=== PATIENT | male | born 1990 | race Caucasian/White ===

== ENCOUNTER 2019-05-31 14:15 | Emergency (ER) | payer OTHER, BC ==
[2019-05-31 14:28] VITALS: BP 126/88
--- NOTE | 2019-05-31 16:09 | ED Physician Documentation ---
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, and a usually caged [employer] [employer] dog ran over to him and bit him in the calf, with laceration lateraly and bruising, abrasion posteriorly, with tender muscles posteriorly mostly.) Timing - onset: Today Timing - details: Abrupt onset, Still present Associated symptoms: No: Weakness, Numbness Review of Systems Neurologic: denies: Focal weakness, Numbness, Near syncope PD PAST MEDICAL HISTORY - Past Medical History Cardiovascular: None Respiratory: None Neuro: None Endocrine/Autoimmune: None - Present Medications Home Medications: Ambulatory Orders Medication Instructions Recorded Confirmed Amox/Clav 875/125 [Augmentin] 1 each PO Q12H #10 tablet 05/31/19 Mupirocin 1 applic TP TID #15 g 05/31/19 Naproxen 500 mg PO BID #20 tablet 05/31/19 - Allergies Allergies/Adverse Reactions: Allergies Allergy/AdvReac Type Severity Reaction Status Date / Time No Known Drug Allergies Allergy Verified 05/31/19 14:24 PD ED PE NORMAL - Vitals Vital signs reviewed: Yes - General General: Alert and oriented X 3, No acute distress (but has some limping gait walking. ), Well developed/nourished - Back Back: No spinal TTP - Derm Derm: Normal color, Warm and dry - Extremities Extremities: Other (right lower leg with 2.4 cm laceration lateral upper calf, without FB. Minimal bleeding still. Posterior upper calf with abrasions and muscle tenderness.) - Neuro Neuro: Alert and oriented X 3, No motor deficit, No sensory deficit, Normal speech Results - Vitals Vitals: Vital Signs - 24 hr 05/31/19 14:24 Temperature 37 C Heart Rate 99 Respiratory 17 Rate Blood Pressure 126/88 H O2 Saturation 98 Oxygen O2 Source Room air Procedures - Laceration (location) right lateral calf Length in cm: 2.4 Wound type: Linear, Clean Neurovascular status: Sensory intact, Motor intact, Vascular intact Tendon involvement: Tendon intact PD MEDICAL DECISION MAKING - ED course Complexity details: considered differential, d/w patient Departure - Departure Disposition: 01 Home, Self Care Clinical Impression: Dog bite of lower leg Qualifiers: Encounter type: initial encounter Laterality: right Qualified Code(s): S81.851A - Open bite, right lower leg, initial encounter Condition: Stable Record reviewed to determine appropriate education?: Yes Instructions: ED Bite Dog Prescriptions: Amox/Clav 875/125 [Augmentin] 1 each PO Q12H #10 tablet Mupirocin 1 applic TP TID #15 g Naproxen 500 mg PO BID #20 tablet Comments: It is okay to wash and shower. Clean off the wound twice a day with soap and water, or peroxide and water. Apply some antibiotic ointment to it to keep it moist. Also to watch for signs of infection such as purulence, redness or increasing pain. Return to your primary care or the ER at the specified time for suture removal. Suture removal 9 or 10 days. Anti-inflammatory naproxen twice daily for 7 to 10 days for pain and inflammation. Apply mupirocin antibiotic ointment to the wound after cleaning it twice daily. Augmentin oral antibiotic twice daily to reduce the chance of infection. Minimal walking and use of the calf muscle for a couple of days. Progressed to normal after that. Forms: Activity restrictions Discharge Date/Time: 05/31/19 17:05
[2019-05-31] MEDS ORDERED: IBUPROFEN 600 MG TABLET PO STA (16:19)
[2019-05-31] MEDS ORDERED: AMOX/CLAV 875 MG/125 MG TABLET PO STA (16:19)
[2019-05-31] MEDS ORDERED: LIDOCAINE MPF 1%-EPI 1:200000 10 ML VIAL SUBQ STA (16:19)
== END 2019-05-31 17:05 | disposition home or self-care (01) ==
LOC: ED 14:15
DX: S81.851A Open bite, right lower leg, initial encounter (principal); W54.0XXA Bitten by dog, initial encounter; Y93.01 Activity, walking, marching and hiking; Y92.007 Garden or yard of unspecified non-institutional (private) residence as the place of occurrence of the external cause; Y99.0 Civilian activity done for income or pay
CPT/HCPCS: 12001; 99283; A9270; J3490; 1040M

== ENCOUNTER 2019-07-21 17:27 | Emergency (ER) | payer BC ==
[2019-07-21 17:35] VITALS: BP 144/87
--- NOTE | 2019-07-21 17:57 | ED Physician Documentation ---
History of Present Illness - Stated complaint Stated Complaint: ARM AND NECK PAIN - Chief complaint Chief Complaint: Ext Problem - History obtained from History obtained from: Patient - History of Present Illness Timing: Other (For about a month and a half he is had waxing waning left-sided neck pain that is worse if he rotates to the right. It often radiates down into the left deltoid area hard to describe pain. There is no specific injury but started after a new workout.) Review of Systems Constitutional: denies: Fever, Chills Cardiac: denies: Chest pain / pressure, Palpitations Respiratory: denies: Dyspnea, Cough GI: denies: Abdominal Pain, Nausea, Vomiting PD PAST MEDICAL HISTORY - Past Medical History Cardiovascular: None Respiratory: None Neuro: None Endocrine/Autoimmune: None - Past Surgical History Past Surgical History: No - Present Medications Home Medications: Ambulatory Orders Medication Instructions Recorded Confirmed predniSONE [Deltasone] 20 mg PO [id number] #21 tab 07/21/19 - Allergies Allergies/Adverse Reactions: Allergies Allergy/AdvReac Type Severity Reaction Status Date / Time No Known Drug Allergies Allergy Verified 07/21/19 17:35 - Social History Does the pt smoke?: No Smoking Status: Never smoker Does the pt drink ETOH?: Yes Does the pt have substance abuse?: No - Immunizations Immunizations are current?: Yes - POLST Patient has POLST: No PD ED PE NORMAL - Vitals Vital signs reviewed: Yes - General General: Alert and oriented X 3, No acute distress - HEENT HEENT: PERRL, EOMI - Neck Neck: Supple, no meningeal sign, No bony TTP - Neuro Neuro: Alert and oriented X 3, No motor deficit, No sensory deficit, Normal speech, Other (Equal bilateral upper extremity reflexes, bicep, coracobrachialis's, tricep. 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 Sensation throughout the upper extremities is equal.) Results - Vitals Vitals: Vital Signs - 24 hr 07/21/19 17:31 Temperature 36.7 C Heart Rate 77 Respiratory 18 Rate Blood Pressure 144/87 H O2 Saturation 99 Oxygen O2 Source Room air PD MEDICAL DECISION MAKING - ED course ED course: His description sounds like cervical radiculopathy, no physical findings of same. We will trial a steroid pack pending follow-up with primary care. Departure - Departure Disposition: Home, Self Care Clinical Impression: Neck pain Condition: Good Record reviewed to determine appropriate education?: Yes Instructions: ED Neck Back Pain General Follow-Up: [facility] [Provider Group] [facility] [Provider Group] [facility] [Provider Group] Prescriptions: predniSONE [Deltasone] 20 mg PO [id number] #21 tab Comments: Your symptoms are most consistent with a cervical radiculopathy, that said your neurologic exam is normal. Recommend trialing the course of steroids but she need to follow-up with her primary care physician for further evaluation and treatment
== END 2019-07-21 18:20 | disposition home or self-care (01) ==
LOC: ED 17:27
DX: M54.2 Cervicalgia (principal)
CPT/HCPCS: 99282; 99283

== ENCOUNTER 2019-09-29 13:58 | Emergency (ER) | payer OTHER, BC ==
--- NOTE | 2019-09-29 15:38 | ED Physician Documentation ---
PD HPI HEAD INJURY - Stated complaint Stated Complaint: HEAD PX/INJ - Chief complaint Chief Complaint: Trauma Hd/Nk - History obtained from History obtained from: Patient - History of Present Illness Mechanism of head injury: Blow Where head injury occurred: Work Timing - onset: Yesterday Location of injury: Right Quality of pain: Pain Associated symptoms: No: LOC, AMS, Amnesia, Nausea / vomiting, Neck pain, Paresthesias, Seizures, Ear drainage, Nasal drainage Symptoms improve with: Rest Symptoms worsen with: Palpation Contributing factors: No: Anticoagulated Similar symptoms before: Has not had sx before Recently seen: Not recently seen - Additional information Additional information: 29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 He did not have loss of consciousness he does have a bruise to the area the area is tender and he has a mild headache. He denies any nausea associated with this denies any difficulty concentrating denies any dizziness or lightheadedness. He was asked by his work to come to the emergency department for evaluation. He denies any neck pain associated with his injury. Review of Systems Constitutional: denies: Fever Eyes: denies: Decreased vision Ears: denies: Loss of hearing, Ear pain Nose: denies: Rhinorrhea / runny nose, Congestion Throat: denies: Sore throat Cardiac: denies: Chest pain / pressure, Palpitations Respiratory: denies: Dyspnea, Cough GI: denies: Abdominal Pain, Nausea, Vomiting, Constipation, Diarrhea : denies: Dysuria, Frequency Neurologic: reports: Headache, Head injury. denies: Generalized weakness, Focal weakness, Numbness, Difficulty speaking, Seizure, Confused, Altered mental status, LOC PD PAST MEDICAL HISTORY - Past Medical History Cardiovascular: None Respiratory: None Neuro: None Endocrine/Autoimmune: None - Past Surgical History Past Surgical History: No - Present Medications Home Medications: Ambulatory Orders Medication Instructions Recorded Confirmed predniSONE [Deltasone] 20 mg PO [id number] #21 tab 07/21/19 - Allergies Allergies/Adverse Reactions: Allergies Allergy/AdvReac Type Severity Reaction Status Date / Time No Known Drug Allergies Allergy Verified 09/29/19 14:06 - Social History Does the pt smoke?: No Smoking Status: Never smoker Does the pt drink ETOH?: Yes Does the pt have substance abuse?: No - Immunizations Immunizations are current?: Yes - POLST Patient has POLST: No PD ED PE NORMAL - Vitals Vital signs reviewed: Yes (Hypertensive mild) - General General: Alert and oriented X 3, No acute distress, Well developed/nourished - HEENT HEENT: PERRL, EOMI, Pharynx benign, Other (There is a 2 cm round area of elevated tissue on the right parietal area of the scalp with a central abrasion consistent where the with the contusion to the head is reported. There is no crepitance or step-off to suggest a skull fracture. There is some tenderness associated with this. 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, No motor deficit, No sensory deficit, Normal speech Eye Opening: Spontaneous Motor: Obeys Commands Verbal: Oriented GCS Score: 15 - Psych Psych: Normal mood, Normal affect Results - Vitals Vitals: Vital Signs - 24 hr 09/29/19 14:06 Temperature 36.6 C Heart Rate 81 Respiratory 14 Rate Blood Pressure 152/93 H O2 Saturation 100 Oxygen O2 Source Room air PD MEDICAL DECISION MAKING - ED course Complexity details: considered differential, d/w patient ED course: 29-year-old male with a concussion yesterday at work has no significant sequelae related to this appears to be tolerating this well we will suspend him from work today and expect him to return to work tomorrow CT scan is not indicated. Departure - Departure Disposition: 01 Home, Self Care Clinical Impression: Concussion Qualifiers: Encounter type: initial encounter Loss of consciousness presence/duration: without LOC Qualified Code(s): S06.0X0A - Concussion without loss of consciousness, initial encounter Condition: Stable Instructions: ED Concussion Follow-Up: [facility] [Provider Group] Forms: Activity restrictions
[2019-09-29 15:53] VITALS: BP 155/94
== END 2019-09-29 15:52 | disposition home or self-care (01) ==
LOC: ED 13:58
DX: S06.0X0A Concussion without loss of consciousness, initial encounter (principal); S00.03XA Contusion of scalp, initial encounter; S00.01XA Abrasion of scalp, initial encounter; W22.09XA Striking against other stationary object, initial encounter; Y93.89 Activity, other specified; Y92.009 Unspecified place in unspecified non-institutional (private) residence as the place of occurrence of the external cause; Y99.0 Civilian activity done for income or pay
CPT/HCPCS: 1040M; 99282; 99284

== ENCOUNTER 2019-12-01 14:42 | Outpatient (CLI) | payer BC | END 2019-12-01 14:43 | disposition home or self-care (01) | LOC: COV 14:42 | PROVIDERS: ATTEND Family Medicine | DX: Z03.818 Encounter for observation for suspected exposure to other biological agents ruled out (principal) ==